=== PATIENT | male | born 1955 ===

== ENCOUNTER 2023-02-09 00:08 | Emergency (ER) | payer MEDICARE ==
[~2023-02-09] VITALS: Ht 188 cm; Wt 83.1 kg
[2023-02-09 00:41] LABS: BASOPHILS 0.5 % (0-2); EOSINOPHILS 0.7 % (0-6); LYMPHOCYTES 17.7 % (24-44); MCHC 34.1 g/dl (30-36); MCV 90.9 fl (81-99); MONOCYTES 8.1 % (0-12); PLATELET COUNT 197 K/uL (140-440); RBC 4.51 M/ul (4.3-5.7); RDW 14.6 (10.5-15.0)
[2023-02-09 00:55] LABS: INR 1.06 (0.80-1.30); PROTIME 13.4 Sec (11.2-14.2)
[2023-02-09 01:02] LABS: ALBUMIN 4.1 g/dL (3.4-5.0); ALBUMIN/GLOBULIN RATIO 1.17 (1.1-2.4); ALCOHOL, MEDICAL <3 ng/dL (<3); ALKALINE PHOSPHATASE 75 U/L (46-116); ALT (SGPT) 28 U/L (14-59); ANION GAP 11.6 (7-21); AST (SGOT) 30 U/L (15-37); BILIRUBIN, TOTAL 1.9 ng/dL (0.2-1.0); BUN/CREATININE RATIO 20.61 (6.0-28.6); CALCIUM 9.3 mg/dL (8.5-10.1); CARBON DIOXIDE 30 mmol/L (21-32); CHLORIDE 102 mmol/L (98-107); CREATININE, SERUM 0.97 mg/dL (0.70-1.30); GLOMERULAR FILTRATION RATE,EST 86 mL/min (>60); MAGNESIUM 1.8 mg/dL (1.8-2.4); POTASSIUM 3.6 mmol/L (3.5-5.1); PROTEIN, TOTAL 7.6 g/dL (6.4-8.2); UREA NITROGEN 20 mg/dL (7-18)
[2023-02-09 03:09] LABS: INFLUENZA B NAA NEGATIVE (NEGATIVE); RESPIRATORY SYNCYTIAL VIR NAA NEGATIVE (NEGATIVE)
[2023-02-09 05:21] LABS: BILIRUBIN, URINE NEGATIVE (negative); BLOOD/HGB, URINE TRACE-I (Negative); KETONE, URINE NEGATIVE (Negative); LEUK ESTERASE, URINE NEGATIVE (negative); NITRITE, URINE NEGATIVE (negative)
[2023-02-09 05:26] LABS: AMPHETAMINES, UR POSITIVE (NEGATIVE); METHAMPHETAMINE, UR POSITIVE (NEGATIVE)
[2023-02-09 05:27] LABS: BARBITURATES, UR NEGATIVE (NEGATIVE); BENZODIAZEPINES, UR NEGATIVE (NEGATIVE); BUPRENORPHINE,UR NEGATIVE (NEGATIVE); COCAINE, UR NEGATIVE (NEGATIVE); MARIJUANA (THC), UR POSITIVE (NEGATIVE); MDMA, UR NEGATIVE (NEGATIVE); METHADONE, UR NEGATIVE (NEGATIVE); OPIATES, UR NEGATIVE (NEGATIVE); OXYCODONE, UR NEGATIVE (NEGATIVE); PHENCYCLIDINE, UR NEGATIVE (NEGATIVE); TRICYCLIC ANTIDEPRESSANT, UR NEGATIVE (NEGATIVE)
[2023-02-09 05:28] LABS: CRYSTALS, URINE NONE SEEN (0-1+); EPITHELIAL CELLS, URINE SQUAMOUS 1+ /lpf (0-1+)
[2023-02-09 05:29] LABS: BACTERIA, URINE RARE /hpf (negative); CASTS, URINE NONE SEEN \\lpf; REFLEX CULTURE, URINE No (No)
[2023-02-09] MEDS ORDERED: CEPHALEXIN500 M1 PO (12:04)
[2023-02-09 12:55] VITALS: BP 131/78
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
== END 2023-02-09 12:59 | disposition home or self-care (01) ==
LOC: ED 00:08
PROVIDERS: Family Medicine
DX: S16.1XXA Strain of muscle, fascia and tendon at neck level, initial encounter (principal); L03.116 Cellulitis of left lower limb; L03.115 Cellulitis of right lower limb; R45.851 Suicidal ideations; F15.90 Other stimulant use, unspecified, uncomplicated; W17.89XA Other fall from one level to another, initial encounter; Z20.822 Contact with and (suspected) exposure to COVID-19
CPT/HCPCS: 36415; 70450; 70498; 71045; 72125; 80053; 81001; 83735; 85025; 85610; 87502; A9270; C9803; G0480; J1170; J1885; J3360; Q9967; U0002